=== PATIENT | female | born 1985 | race Native Hawaiian/Other Pacific Islander ===

== ENCOUNTER 2018-01-14 19:29 | Emergency (ER) | payer OTHER ==
[2018-01-14 21:12] VITALS: BMI 27.4
[2018-01-15 03:37] VITALS: BP 107/59; PULSE 80
--- NOTE | 2018-01-15 14:07 | US ---
Date of service: 01/14/2018 PROCEDURE: Biophysical profile. HISTORY: Assess amniotic fluid volume COMPARISON: None TECHNIQUE: Standard protocol for this study/examination. FINDINGS: FINDINGS: Biophysical profile score 8/8 Based on the followin. breathing movements: 2/2 2. Gross body movement: 2/2 3. tone: 2/2 4. Qualitative amniotic fluid index: 2/2 Cephalic presentation. Cardiac rate 129 beats per minute. Quantitative amniotic fluid index 14.41 cm. Fundal and posterior placenta. IMPRESSION: Biophysical profile score 8/8. Live intrauterine gestation cephalic presentation. Concordant findings (preliminary report) provided by YARELY MONTILLA.
== END 2018-01-14 23:05 | disposition home or self-care (01) ==
LOC: H.EROB2 19:29
DX: O34.63 Maternal care for abnormality of vagina, third trimester (principal); N89.8 Other specified noninflammatory disorders of vagina; Z3A.40 40 weeks gestation of pregnancy; O48.0 Post-term pregnancy

== ENCOUNTER 2018-01-19 20:41 | Inpatient (IN) | payer OTHER ==
--- NOTE | 2018-01-19 20:53 | OBHP ---
Datetime: 01/14/2018 21:22 IP Adm Impression: Postterm, intrauterine (Annotations: Data stored by CPN on behalf of us er) IP Admit Plan: Observation/Evaluation; Discharge home Admit Comment, IP Provider: KENISHA: 01/12/2018 LMP: 03/2017 (exact date uncertain) PNP: Dr. Clark Patient does not have records 32 y/o with IUP @ 40.2 wks with KENISHA 01/12/2018 presented to [facility] c/o of loss of fluid she no ticed while sitting down at about 5pm. She has never had similar symptoms in the past. She also endor ses irregular contractions _ +FM. She denies vaginal bleeding. She last saw Dr. Clark on _ states exam was wnl. Denies f/c, c/p, dyspnea, dysuria or vomiting. ROS: 12 points reviewed _ negative unless stated otherwise in HPI. PMH: Denies Family Hx: non-contributory Social: Denies tob, EtOH, drugs Surg Hx: Colonoscopy for bloody stools Allergies: NKA Meds: PNV VS: 111/57 Pulse-89bpm SPO2-100% PE: lying supine positing breathing comfortably CV: s1s2 RRR, no murmurs Lungs: Respiratory effort wnl, cta b/l, no wheezes Abdomen: Gravid, BS + FHT: reassuring- 145 baseline; mod variability; No decelerations; ultrasound est ROCK- 6cm Pelvic: Nurse Shanna as attractions associate; Dr. Younger:sterile spec-small amount of thick, white cottage ch eese like discharge Extremities: calves nontender A/P: 32 y/o with IUP @ 40.2 wks with KENISHA 01/12/2018 presented to [facility] c/o of loss of fluid. Order BPP, If wnl, patient will be dc home. -Continue monitoring. Patient seen and examined with Dr. Younger. Dr. SALAZAR Alston, , PGY-1 IP Hx Assessment: The History has been Updated EGA AdmitDate IP: 40.2 Vital Signs Provider: Reviewed; Within Normal Limits IP Chief Complaint: Suspected ruptured membranes NICHD Variability Prov Fetus A: Moderate 6-25bpm NICHD Accel Fetus A IP Provider: 15X15 FHR Category Provider Fetus A: Category I NICHD Decel Fetus A IP Provider: None
[2018-01-19 21:16] VITALS: BMI 28.3
[2018-01-19 22:33] LABS: EOS % 0.4 % (0.0-4.0); HEMOGLOBIN 12.8 g/dL (12.0-16.0); LYMPH # 1.3 K/uL (1.0-4.3); LYMPH % 15.2 % (20.0-40.0); MEAN CELL VOLUME 93.4 fl (81.0-99.0); MEAN CORPUSCULAR HEMOGLOBIN 31.2 pg (27.0-31.0); MEAN CORPUSCULAR HGB CONC 33.3 g/dL (33.0-37.0); MEAN PLATELET VOLUME 8.2 fl (7.2-11.7); MONO # 1.1 K/uL (0.0-0.8); MONO % 13.5 % (0.0-10.0); NEUT # 5.9 K/uL (1.8-7.0); NEUT % 70.9 % (50.0-75.0); RBC 4.11 Mil/uL (3.80-5.20); RED CELL DISTRIBUTION WIDTH 16.5 % (11.5-14.5); WHITE BLOOD COUNT 8.4 K/uL (4.8-10.8)
[2018-01-20] MEDS: Lactated Ringer's 1,000 ML IV SCH ×4 (04:30→15:30)
[2018-01-20] MEDS ORDERED: Lactated Ringer's 1,000 ML IV SCH (06:30)
--- NOTE | 2018-01-20 08:13 | OBHP ---
Datetime: 01/19/2018 23:05 IP Adm Impression: Postterm, intrauterine ; No Active Labor; Intact Membranes IP Admit Plan: Admit to unit; Initiate labor protocol; Initiate labor induction protocol Admit Comment, IP Provider: 32 y/o @ 41 wks with KENISHA 01/12/2018, LMP: 03/2017 presented for sche duled induction. She endorses FM _ irregular contractions, but denies loss of fluid or vb. Dr. William arana is her PNP _ was last checked yesterday in the clinic. She reports being 1cm. Denies f/c, c/p, dy spnea, dysuria or vomiting. OBgynhx: came to hospital 01/14 because of irregular contractions; found to have vaginal vianney _ was treated/discharged home. PMH: Denies Family Hx: Dad: pre-diabetes, Mom-healthy Social: Denies tob, EtOH, drugs Surg Hx: Colonoscopy for bloody stools Allergies: NKA Meds: PNV ROS: 12 points reviewed _ negative unless stated otherwise in HPI. 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 Admit to unit and initiate induction protocol. Cervidil for induction. -Continue monitoring. Patient seen and examined with Dr. Desouza. Dr. SALAZAR Alston, FM, PGY-1 OB Hospitalist on-call. With PGY1, I saw this patient and agree with note. KVNG Pt understand her condition, OON situation, medicatoins, IOL, labor, pain managment, delivery and . Her and her 's questoins answered. Extremities - PN: Normal Abdomen - PN: Normal Lungs - PN: Normal Heart - PN: Normal General - PN: Normal Presentation-Admit: Vertex FHR - Baseline A Provider: 130 Membranes, Provider: Intact Gestation - Est Wks by US: 41.0 Pool Provider: Negative IP Hx Assessment: The History has been Reviewed and is Current EGA AdmitDate IP: 41.0 Vital Signs Provider: Reviewed; Within Normal Limits IP Chief Complaint: Scheduled induction of labor NICHD Variability Prov Fetus A: Moderate 6-25bpm NICHD Accel Fetus A IP Provider: 15X15 FHR Category Provider Fetus A: Category I NICHD Decel Fetus A IP Provider: None Dilatation, Provider: 1 Effacement, Provider: 0 Station, Provider: -3
[2018-01-20] MEDS ORDERED: Oxytocin 30 UNIT 30 UNITS/500 ML BAG IV ONE ×4 (08:27→19:46)
[2018-01-20] MEDS ORDERED: Fentanyl/Bupivacaine HCl 250 ML EPI ONE (15:18)
[2018-01-20] MEDS ORDERED: Morphine 1 mg/ml preservative-free Inj(Duramorph) ONE (17:04)
[2018-01-21] MEDS ORDERED: Oxycodone/Acetaminophen 5/325 mg Tab PO PRN (00:52)
[2018-01-21] MEDS ORDERED: Benzocaine/Menthol SPRAY TOP PRN ×2 (00:52→03:17)
[2018-01-21] MEDS ORDERED: Oxytocin 30 UNIT 30 UNITS/500 ML BAG IV ONE (00:55)
[2018-01-21] MEDS ORDERED: OXYTOCIN/0.9 % NS 20 UNIT/1,000 ML BAG IV SCH (01:00)
--- NOTE | 2018-01-21 01:12 | OBDS ---
DELIVERY PERSONNEL Delivery Doctor: Maggi Clark MD Electromechanical Assembler: Hayley Kinsey RN Anesthesiologist: Dieter Resident: RAINER Alston MATERNAL INFORMATION Delivery Anesthesia: Epidural Medications in Delivery: Oxytocin Placenta Cultured: No Maternal Complications: None Provider Comments: Delivered live baby boy at 12:16 a.m. the baby was bulb suctioned on the perineu m and transferred to the maternal chest. The cord was clamped and cut 3 vessels noted, cord blood was obtained and sent to the lab. The placenta was delivered at 12:22 AM intact the quantified blood lo ss was 300 mL. There was a first-degree laceration which was repaired with 2-0 rapide. The mother frankie erated procedure well the baby went to the well-baby nursery with Apgars of 9 and 9 weighing 3570 g LABOR SUMMARY [facility]: 01/12/2018 00:00 No. Babies in Womb: 1 Attempted: No Labor Anesthesia: Epidural LABOR INFORMATION Reason for Induction: Postterm Onset of Labor: 01/20/2018 14:00 Complete Dilatation: 01/20/2018 23:00 Cervical Ripening Agents: Cervidil (Annotations: Removed at 0230. ) Oxytocin: Induction Group B Beta Strep: Negative Antibiotics # of Doses: na Antibiotics Time of Last Dose: na Steroids Given: None Reason Steroids Not Administered: Not Applicable MEMBRANES Membranes Rupture Method: Artificial Rupture of Membranes: 01/20/2018 13:30 Length of Rupture (hrs): 10.77 Amniotic Fluid Color: pink tinge Amniotic Fluid Amount: Scant Amniotic Fluid Odor: Normal STAGES OF LABOR Stage 1 hrs: 9 Stage 1 min: 0 Stage 2 hrs: 1 Stage 2 min: 16 Stage 3 hrs: 0 Stage 3 min: 6 Total Time in Labor hrs: 10 Total Time in Labor min: 22 VAGINAL DELIVERY Episiotomy: None Laceration Repair: Yes Initial Vag Sponge Count: 5 Final Vag Sponge Count: 5 Initial Vag Sharps Count: 4 Final Vag Sharps Count: 4 Sponge Count Correct: Yes Sharps Count Correct: Yes BABY A INFORMATION Infant Delivery Date/Time: 01/21/2018 00:16 Method of Delivery: Vaginal Born in Route : No : N/A Forceps: N/A Vacuum Extraction: N/A Shoulder Dystocia : No SHOULDER DYSTOCIA BABY A Delivery Date/Time: 01/21/2018 00:16 PRESENTATION/POSITION BABY A Presentation: Compound Cephalic Presentation: Vertex PLACENTA INFORMATION BABY A Placenta Delivery Time : 01/21/2018 00:22 Placenta Method of Delivery: Spontaneous Placenta Status: Delivered SCORES BABY A Heart Rate 1 min: >100 bpm Resp Effort 1 min: Good Cry Reflex Irritability 1 min: Cough or Sneeze or Pulls Away Muscle Tone 1 min: Active Motion Color 1 min: Body The Silos, Extremities Blue Resuscitation Effort 1 min: Tactile Stimulation SCORE 1 MIN: 9 Heart Rate 5 min: >100 bpm Resp Effort 5 min: Good Cry Reflex Irritability 5 min: Cough or Sneeze or Pulls Away Muscle Tone 5 min: Active Motion Color 5 min: Body The Silos, Extremities Blue Resuscitation Effort 5 min: Tactile Stimulation SCORE 5 MIN: 9 INFANT INFORMATION BABY A Gestational Age at Delivery: 41.2 Gestational Status: Term Outcome : Liveborn Condition : Stable Infant Sex: Male IDENTIFICATION/MEDS BABY A ID Band Number: [id number] ID Band Location: Left Leg; Left Arm WEIGHT/LENGTH BABY A Birthweight (gms): 3570 Infant Weight (lb): 7 Infant Weight (oz): 14 CORD INFORMATION BABY A No. Cord Vessels: 3 Nuchal Cord : Around Neck x1, Loose Cord Blood Taken: Yes Infant Suction: Mouth; Nose ASSESSMENT BABY A Complications: None Physical Findings at Delivery: Caput Succedaneum Respirations: Appears Normal Drier Transfer Car Operator/ALS Called : No Transferred To: Remains with Mother
[2018-01-21] MEDS ORDERED: Ammonia 2% Inhalant ONE (02:29)
[2018-01-21] MEDS ORDERED: Lactated Ringer's 1,000 ML IV SCH ×2 (02:30→03:17)
--- NOTE | 2018-01-21 22:23 | OBPPN ---
Datetime: 01/21/2018 22:18 PP Pain Prov: Within normal limits PP Nausea Prov: Denies PP Flatus Prov: Yes PP Breasts Prov: Normal PP Heart Prov: Normal PP Lungs Prov: Normal PP Abdomen/Uterus Prov: Normal PP Lochia Prov: Normal PP Vulva/Perineum Prov: Normal PP CVA Tenderness Prov: Normal PP Extremities Prov: Normal PP C/S Incision Prov: Not Applicable PP Progress Prov: Normal PP Comments Phys Exam Prov: Abdomen soft, nontender, nondistended Uterus firm, below umbilicus No deep calf tenderness bilaterally PP Impression Prov: Normal progression PP Plan Prov: Continue present management PP Progress Note Prov: day #1 status post , patient recovering well Regular diet Patient out of bed and ambulating Pain control Anticipate discharge home tomorrow IP PP Procedures: None Vital Signs Provider PP: Reviewed; Within Normal Limits
[2018-01-22] MEDS: Oxycodone/Acetaminophen 5/325 mg Tab PO PRN (01:28)
[2018-01-22 06:56] LABS: BASO % 0.3 % (0.0-2.0); EOS # 0.1 K/uL (0.0-0.7); EOS % 0.8 % (0.0-4.0); HEMOGLOBIN 11.1 g/dL (12.0-16.0); LYMPH # 1.6 K/uL (1.0-4.3); LYMPH % 13.9 % (20.0-40.0); MEAN CELL VOLUME 94.9 fl (81.0-99.0); MEAN CORPUSCULAR HEMOGLOBIN 31.3 pg (27.0-31.0); MEAN PLATELET VOLUME 8.2 fl (7.2-11.7); MONO # 1.1 K/uL (0.0-0.8); MONO % 9.7 % (0.0-10.0); NEUT # 8.5 K/uL (1.8-7.0); NEUT % 75.3 % (50.0-75.0); RBC 3.56 Mil/uL (3.80-5.20); WHITE BLOOD COUNT 11.3 K/uL (4.8-10.8)
[2018-01-23] MEDS: Oxycodone/Acetaminophen 5/325 mg Tab PO PRN (02:01)
--- NOTE | 2018-01-23 08:51 | OBPPN ---
Datetime: 01/23/2018 08:47 PP Pain Prov: Within normal limits PP Nausea Prov: Denies PP Flatus Prov: Yes PP Breasts Prov: Normal PP Heart Prov: Normal PP Lungs Prov: Normal PP Abdomen/Uterus Prov: Normal PP Lochia Prov: Normal PP Vulva/Perineum Prov: Normal PP CVA Tenderness Prov: Normal PP Extremities Prov: Normal PP Progress Prov: Normal PP Comments Phys Exam Prov: Abd: Soft, NT, BS- present UT- Firm PP Impression Prov: Normal progression PP Plan Prov: Discharge PP Progress Note Prov: S/P , PPD #2 Clinically Stable. Plan: D/C Home Datetime: 01/22/2018 20:55 Vital Signs Provider PP: Reviewed
--- NOTE | 2018-01-23 08:51 | OBDCSUM ---
Datetime: 01/23/2018 08:48 Discharged to, Provider: Home Follow up at, Provider: Dr Clark Disch Instr Activity: Normal activity Disch Instr Diet: Regular Discharge Instructions, Provider: Routine instructions given Discharge Diagnosis, Provider: Term Delivered Discharge Time: 01/23/2018 08:49 Follow up in weeks, Provider: 4-6 weeks Disch Referrals: None Contraception discussed, Prov: Yes Discharge Comment, Provider: S/P uncomplicated , Clinically Stable Discharge Diagnosis Prov Other: S/P uncomplicated , Clinically Stable
[2018-01-23 18:57] VITALS: BP 106/69; PULSE 74; RESP 18; TEMP 97.9; O2SAT 99
== END 2018-01-23 13:25 | disposition home or self-care (01) | DRG 806 ==
LOC: H.L&D 21:16 → H.OB/GYN 01-21 03:00
PROVIDERS: ADMIT Obstetrics & Gynecology; ATTEND Obstetrics & Gynecology
PROC: 4A1HXCZ Monitoring of Products of Conception, Cardiac Rate, External Approach (ICD-10-PCS; 2018-01-19)
PROC: 10E0XZZ Delivery of Products of Conception, External Approach (ICD-10-PCS; principal; 2018-01-21)
PROC: 0HQ9XZZ Repair Perineum Skin, External Approach (ICD-10-PCS; 2018-01-21)
DX: O48.0 Post-term pregnancy (principal); O98.82 Other maternal infectious and parasitic diseases complicating childbirth; Z37.0 Single live birth; Z3A.41 41 weeks gestation of pregnancy; O69.81X0 Labor and delivery complicated by cord around neck, without compression, not applicable or unspecified; O70.0 First degree perineal laceration during delivery; B37.3 Candidiasis of vulva and vagina